=== PATIENT | female | born 1950 | race Asian ===

== ENCOUNTER 2016-12-09 00:50 | Emergency (ER) | payer MEDICARE, OTHER ==
[~2016-12-09] VITALS: Ht 144.8 cm; Wt 49.9 kg
--- NOTE | ~2016-12-09 | CT71 ---
[facility] A Service of [facility] / [facility] RADIOLOGY TEXT RESULTS PATIENT: LIBAN RECINOS LOCATION: [facility] : 46 UNIT #: [id number] AGE: [address]: Bright Long MD SEX: F ORDER DR: [id number] [facility] [address] [place], [place] [address] [id number] E MR#: [id number] Acc #: [id number] NAME: LIBAN RECINOS : 1950 SEX: F STUDY DATE/TIME: 12/09/2016 2:32 UNIT: [facility] ROOM: STUDY DESCRIPTION: CT Head Wo Contrast Attending Physician: Bright Long M.D. Ordering Physician: Bright Long M.D. Primary Care Physician: No Primary Care Physician MEDICAL IMAGING REPORT This report is preliminary unless electronic signature is present EXAM CT head, noncontrast, 12/09/2016. HISTORY 66-year-old female in the ED complaining of 2-day history of mental status changes. Headache and neck pain. TECHNIQUE CT examination of the head without IV contrast. This CT exam was performed with one or more of the following radiation dose reduction techniques: automatic exposure control, adjustment of mA and/or kV according to patient size, and iterative reconstruction. FINDINGS The examination is negative. No evidence of intracranial hemorrhage, mass, mass effect, cerebral edema, hydrocephalus or additional abnormality. Mild mucosal thickening within the visualized portions of the ethmoid and maxillary sinuses bilaterally. Atheromatous plaque in the carotid siphons. IMPRESSION Negative head CT examination. Dictated by... Augustin Garzon M.D. THIS IS AN ELECTRONICALLY VERIFIED REPORT Augustin Garzon M.D. at 12/09/2016 10:03 PM RGW/gz TD: 12/09/2016 10:43 JOB #: [id number] [facility] A Service [facility] RADIOLOGY TEXT RESULTS PATIENT: LIBAN RECINOS LOCATION: [facility] : 46 UNIT #: [id number] AGE: [address]: Bright Long MD SEX: F ORDER DR: MEDICAL IMAGING REPORT Page 1 of 1 COPY
--- NOTE | ~2016-12-09 | EKG ---
PATIENT: LIBAN RECINOS UNIT #: [id number] Ventricular Rate: 92 BPM Atrial Rate: 92 BPM P-R Interval: 146 ms QRS Duration: 78 ms Q-T Interval: 342 ms QTC Calculation(Bezet): 422 ms P Chadwick: 76 degrees Calculated R Chadwick: 9 degrees Calculated T Chadwick: 61 degrees Diagnosis Line: Normal sinus rhythm Diagnosis Line: Normal ECG Diagnosis Line: When compared with ECG of 11-MAY-2010 03:42, Diagnosis Line: No significant change was found Diagnosis Line: Confirmed by DEVIKA WANG MD ([id number]) on 12/09/2016 Diagnosis Line: 11:05:27 PM INTERPRETING MD: FELIPE JUSTICE
--- NOTE | ~2016-12-09 | CR72 ---
[facility] A Service of [facility] RADIOLOGY TEXT RESULTS PATIENT: LIBAN RECINOS LOCATION: [facility] : 46 UNIT #: [id number] AGE: [address]: Bright Long MD SEX: F ORDER DR: [id number] [facility] [address] [place], [place] [address] [id number] E MR#: [id number] Acc #: [id number] NAME: LIBAN RECINOS : 1950 SEX: F STUDY DATE/TIME: 12/09/2016 1:55 UNIT: [facility] ROOM: STUDY DESCRIPTION: CR Chest Single View Portable Attending Physician: Bright Long M.D. Ordering Physician: Bright Long M.D. Primary Care Physician: No Primary Care Physician MEDICAL IMAGING REPORT This report is preliminary unless electronic signature is present EXAM Chest x-ray, 12/09/2016. HISTORY 66-year-old female in the ED complaining of 2-day history of shortness of air and weakness. Reported history of asthma. TECHNIQUE AP portable chest x-ray. FINDINGS The lungs are expanded and clear. No visible pulmonary infiltrate or pleural effusion. Mild cardiomegaly. Pulmonary vascularity is normal. IMPRESSION No active disease. The lungs are clear. Dictated by... Augustin Garzon M.D. THIS IS AN ELECTRONICALLY VERIFIED REPORT Augustin Garzon M.D. at 12/09/2016 10:03 PM CLARIBEL/mirtha TD: 12/09/2016 10:35 JOB #: [id number] MEDICAL IMAGING REPORT Page 1 of 1 COPY
[2016-12-09 01:17] LABS: BASOPHIL# 0.1 X10e3 (0-0.3); BASOPHIL% 0.9 % (0-2.5); DIFF IND NO; EOSINOPHIL# 0.2 X10e3 (0-0.7); EOSINOPHIL% 2.4 % (0.0-7.0); HEMATOCRIT 35.3 % (35.0-45.0); HEMOGLOBIN 11.8 gm/dL (12.0-16.0); LYMPHOCYTE# 3.3 X10e3 (1.0-3.5); MEAN CELL VOLUME 95.5 FL (83-96); MEAN CORPUSCULAR HEMOGLOBIN 31.9 PG (28-34); MEAN CORPUSCULAR HGB CONC 33.4 g/dL (30-36); MONOCYTE# 1.2 X10e3 (0-1.0); MONOCYTE% 12.9 % (3.0-12.0); NEUTROPHIL# 4.8 X10e3 (1.5-7.1); NEUTROPHIL% 49.8 % (40-75); PLATELET COUNT 257 X10e3 (140-420); RED CELL DISTRIBUTION WIDTH 13.1 % (11.0-15.5); WHITE BLOOD COUNT 9.6 X10e3 (4.0-10.5)
[2016-12-09 01:20] LABS: POC - CKMB 2.1 ng/mL (0.0-7.9); POC - TROPONIN <0.05 ng/mL (<=0.05)
[2016-12-09 01:32] LABS: INR 0.9; PARTIAL THROMBOPLASTIN TIME 22.3 SECONDS (23.5-31.3)
[2016-12-09 01:43] LABS: ALBUMIN SERUM 3.8 g/dL (3.5-5.0); ALKALINE PHOSPHATASE 57 U/L (32-92); ALT (SGPT) 29 U/L (10-40); AST (SGOT) 27 U/L (10-42); BILIRUBIN, DIRECT 0.2 mg/dL (0.0-0.2); BILIRUBIN,INDIRECT 0.6 mg/dL (0.0-0.9); BILIRUBIN,TOTAL 0.8 mg/dL (0.2-2.0); BLOOD UREA NITROGEN 15 mg/dL (9-23); BUN/CREATININE RATIO 16.66; CALCIUM SERUM 9.4 mg/dL (8.4-10.2); CARBON DIOXIDE 26 mmol/L (22-31); CHLORIDE 104 mmol/L (100-111); CREATININE SERUM 0.9 mg/dL (0.6-1.4); GLOM FILT RATE Estimated 65.7 mL/min (>60); GLUCOSE FASTING 92 mg/dL (70-110); PROTEIN TOTAL SERUM 7.3 g/dL (6.0-8.3); SODIUM 137 mmol/L (135-145)
[2016-12-09 01:48] LABS: ALCOHOL BLOOD <5 mg/dL (0); POTASSIUM 2.7 mmol/L (3.5-5.1)
[2016-12-09 01:59] LABS: URINE SOURCE CLEAN CATCH
[2016-12-09 02:05] LABS: URINE APPEARANCE CLEAR; URINE BILIRUBIN NEG (NEG); URINE BLOOD TRACE (NEG); URINE COLOR YELLOW; URINE GLUCOSE NEG (NEG); URINE KETONE NEG (NEG); URINE LEUKOCYTE ESTERASE NEG (NEG); URINE NITRATE NEG (NEG); URINE PH 6.5 (5-8); URINE PROTEIN NEG (NEG); URINE SPECIFIC GRAVITY 1.006 (1.003-1.035); URINE UROBILINOGEN 0.2 MG/DL (NEG)
[2016-12-09 02:07] LABS: URBCS1 AUWI 0-2 /[HPF] (0-2); URINE BACTERIA AUWI NEG (NEGATIVE); URINE SQUAMOUS EPITHELIAL CELL NONE SEEN /[HPF]; UWBCS1 AUWI 0-2 (0-5)
[2016-12-09 02:09] LABS: CULTURE INDICATED? NO
[2016-12-09 02:14] LABS: AMPHETAMINE NEG (NEG); BARBITURATES NEG (NEG); BENZODIAZEPINES NEG (NEG); COCAINE NEG (NEG); MARIJUANA NEG (NEG); OPIATES NEG (NEG); TRICYCLIC ANTIDEPRESSANTS NEG (NEG); U METHADONE NEG (NEG)
== END 2016-12-09 03:31 | disposition home or self-care (01) ==
LOC: CED 00:50
PROVIDERS: Emergency Medicine
DX: R41.82 Altered mental status, unspecified (principal); E87.6 Hypokalemia; J45.909 Unspecified asthma, uncomplicated
CPT/HCPCS: 36415; 51701; 70450; 71010; 80048; 80076; 80307; 81003; 82553; 82947; 84484; 85025; 85610; 85730; 93005; 96361; 96374; 99285; G0480; J1885